=== PATIENT | female | born 1995 | race Caucasian/White ===

== ENCOUNTER 2018-08-16 21:47 | Emergency (ER) | payer BC ==
[2018-08-16 22:11] VITALS: RESP 19
[2018-08-16] MEDS ORDERED: Ciprofloxacin 0.3% OPTH SOLN OU STA (22:23)
--- NOTE | 2018-08-16 22:23 | ED PDOC ---
Arrival/HPI - General Chief Complaint: Eye Problem Historian: Patient - History of Present Illness Narrative History of Present Illness (Text): 08/16/18 22:13 23 y/o female, no significant pmh, nkda, last tetanus under 6 years ago, c/o bilateral eye redness with left eye irritation x 1 day. pt. stated that her both eyes are red tonight, lt. eye feels foreign body sensation with no incident of foreign bodies flying in, no change in vision, no night sweat, no rash, no numbness or tingling, no other medical or psychological complaints. Past Medical History - Provider Review Nursing Documentation Reviewed: Yes - Infectious Disease Hx of Infectious Diseases: None - Reproductive Currently : No - Psychiatric Hx Substance Use: No - Anesthesia Hx Anesthesia: No Hx Anesthesia Reactions: No Hx Malignant Hyperthermia: No Family/Social History - Physician Review Nursing Documentation Reviewed: Yes Family/Social History: Unknown Family HX Smoking Status: Never Smoked Hx Alcohol Use: No Hx Substance Use: No Allergies/Home Meds Allergies/Adverse Reactions: Allergies No Known Allergies Allergy (Verified 08/16/18 22:10) Review of Systems - Review of Systems Constitutional: absent: Fatigue, Fevers Eyes: Other (eye redness). absent: Vision Changes ENT: absent: Hearing Changes Respiratory: absent: SOB, Cough Cardiovascular: absent: Chest Pain Gastrointestinal: absent: Abdominal Pain, Diarrhea, Nausea, Vomiting Musculoskeletal: absent: Arthralgias, Back Pain Skin: absent: Rash, Pruritis Neurological: absent: Headache, Dizziness Hemo/Lymphatic: absent: Adenopathy Psychiatric: absent: Anxiety, Depression, Suicidal Ideation Physical Exam Vital Signs Reviewed: Yes Vital Signs Temp Pulse Resp BP Pulse Ox 08/16/18 22:05 98.5 F 98 H 19 108/71 99 Temperature: Afebrile Blood Pressure: Normal Pulse: Regular Respiratory Rate: Normal Appearance: Positive for: Well-Appearing, Non-Toxic, Comfortable Pain Distress: Mild Mental Status: Positive for: Alert and Oriented X 3 - Systems Exam Head: Present: Atraumatic, Normocephalic Pupils: Present: PERRL, Other (Eyes: bilateral vision w/glassess 20/20, rt. eye w/correction glasses 20/20, lt. eye w/correction glasses 20/20, +bilateral conjunctivitis, fluorsein strips examined both eyes show lt. corneal abrasion superficially on the lt. anterior corneal approx. 1cm diameter with no dendritic lesion and negative shelia signs, rt. eye exam within normal limit except conjunctivitis, no periorbital swelling. ) Extroacular Muscles: Present: EOMI Conjunctiva: Present: Normal Ears: Present: NORMAL TM, Normal Canal. No: Erythema Mouth: Present: Moist Mucous Membranes Neck: Present: Normal Range of Motion Respiratory/Chest: Present: Clear to Auscultation, Good Air Exchange. No: Respiratory Distress, Accessory Muscle Use Cardiovascular: Present: Regular Rate and Rhythm, Normal S1, S2. No: Murmurs Abdomen: No: Tenderness, Distention, Peritoneal Signs Back: Present: Normal Inspection Upper Extremity: Present: Normal Inspection. No: Cyanosis, Edema Lower Extremity: Present: Normal Inspection. No: Edema Neurological: Present: GCS=15, CN II-XII Intact, Speech Normal Skin: Present: Warm, Dry, Normal Color. No: Rashes Psychiatric: Present: Alert, Oriented x 3, Normal Insight, Normal Concentration Medical Decision Making ED Course and Treatment: 08/16/18 22:29 -urin hcg is negative -ciloxin -Discharge home with ciloxcin, avoid rubbing or touching the eyes, no contacts until clear by opthalmologist, use glasses, sleep, tylenol for pain as needed, follow up with opthalmologist and pmd in 24-48 hours, return to the ER for any new or worsening signs or symptoms. - PA / DRIP MOLDER / Resident Statement MD/DO has reviewed & agrees with the documentation as recorded. Disposition/Present on Arrival - Present on Arrival Any Indicators Present on Arrival: No History of DVT/PE: No History of Uncontrolled Diabetes: No Urinary Catheter: No History of Decub. Ulcer: No History Surgical Site Infection Following: None - Disposition Have Diagnosis and Disposition been Completed?: Yes Diagnosis: Conjunctivitis, Corneal abrasion Disposition: HOME/ ROUTINE Disposition Time: 22:31 Patient Plan: Discharge Condition: IMPROVED Additional Instructions: -Discharge home with ciloxcin, avoid rubbing or touching the eyes, no contacts until clear by opthalmologist, use glasses, sleep, tylenol for pain as needed, follow up with opthalmologist and pmd in 24-48 hours, return to the ER for any new or worsening signs or symptoms. Prescriptions: Ciprofloxacin 0.3% [Ciloxan 0.3% Ophth SOLN] 2 drop OU Q4 #1 bottle Referrals: Hugo Kendall [Staff Provider] - Follow up with primary [facility] [place] [Outside] - Follow up with primary Forms: [facility] [facility] (Polish), WORK NOTE
[2018-08-16 22:44] VITALS: BP 109/56; PULSE 99; TEMP 97.9; O2SAT 100
== END 2018-08-16 22:44 | disposition home or self-care (01) ==
LOC: ED 21:47
DX: H10.9 Unspecified conjunctivitis (principal); S05.02XA Injury of conjunctiva and corneal abrasion without foreign body, left eye, initial encounter; X58.XXXA Exposure to other specified factors, initial encounter